=== PATIENT | male | born 1940 | race Caucasian/White ===

== ENCOUNTER 2016-06-29 13:46 | Emergency (ER) | payer BC ==
[~2016-06-29] VITALS: Ht 185.4 cm; Wt 90.0 kg
[~2016-06-29 13:46] MED LIST: ASPI325T45 PO; ATOR-26 PO; BNC40 PO; CLOP1TAB54 PO; DOXA1TAB86 PO; FINA5TAB PO; METO1TAB71 PO; NTRGSL/4 UT
[2016-06-29 13:50] VITALS: Ht 185.4 cm; Wt 90.0 kg
[2016-06-29 13:53] VITALS: O2SAT 95
[2016-06-29] MEDS ORDERED: ACETAMINOPHEN 500 MG TAB PO STA (14:02)
[2016-06-29] MEDS ORDERED: SODIUM CHLORIDE 0.9% 1000ML 1,000 ML IV STA (14:02)
--- NOTE | 2016-06-29 14:05 | EMERGENCY ROOM VISIT NOTE ---
History Report prepared by Andrea: Any Kang Under the Supervision of: Dr. Ponce Peterson M.D. First contact with patient: 13:54 Chief Complaint: ILLNESS History of Present Illness The patient is a 75 year old male who presents to the Emergency Room via ambulance with complaints of resolved chills that began at 10:30 this morning, about 3.5 hours [employer]. The patient notes that he was experiencing shaking due to feeling cold, especially his chest and stomach. The patient tried to warm up by the fire and ate some hot soup without any relief. Currently, he is not shivering anymore. He is unsure if he had a fever. He has not had any sick contacts. He had a normal bowel movement this morning. Denies LOC, runny nose, vomiting, diarrhea, or other complaints. He has a history of cholecystectomy and hernia repair. 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 He has a history of heart disease including a heart attack. Source of History: patient Onset: 10:30AM, 3.5 hours [employer] Position: other (global) Quality: other (shivers/shaking) Timing: resolved Associated Symptoms: No LOC, No diarrhea, No vomiting Review of Systems See HPI for pertinent positives & negatives. A total of 10 systems reviewed and were otherwise negative. Past Medical & Surgical Medical Problems: (1) Angina at rest (2) CAD (coronary artery disease) Family History FHx: heart disease Social History Smoking Status: Former Smoker Marital Status: Occupation Status: retired Current/Historical Medications Scheduled Aspirin (Aspirin), 325 MG PO QAM Atorvastatin (Lipitor), 80 MG PO HS Clopidogrel Bisulfate (Plavix), 75 MG PO QAM Doxazosin Mesylate (Doxazosin Mesylate), 4 MG PO HS Finasteride (Proscar), 5 MG PO QAM Metoprolol Succinate (Toprolxl (Toprol-Xl), 200 MG PO QAM Olmesartan Medoxomil (Benicar), 40 MG PO QAM Scheduled PRN Nitroglycerin (Nitrostat), 0.4 MG UT UD PRN for Chest Pain Allergies Coded Allergies: Lisinopril (Verified Allergy, Unknown, COUGH, 06/29/16) Physical Exam Vital Signs Date Time Temp Pulse Resp B/P Pulse Ox O2 Delivery O2 Flow Rate FiO2 06/29/16 17:19 37.2 69 18 108/64 95 06/29/16 15:47 38.2 72 18 120/79 95 Room Air 06/29/16 13:53 95 Room Air 06/29/16 13:53 86 06/29/16 13:50 37.8 86 18 140/76 95 Room Air Physical Exam GENERAL: Patient is mildly appearing and in no acute distress. HEENT: No acute trauma, normocephalic atraumatic, mucous membranes moist, no nasal congestion, no scleral icterus. NECK: No stridor, no adenopathy, no meningismus, trachea is midline. LUNGS: No dyspnea. Clear to auscultation and equal bilaterally. No wheeze, no rhonchi. HEART: Regular rate and rhythm. No murmurs, rubs, gallops appreciated. ABDOMEN: Soft, nontender, bowel sounds positive, no masses appreciated, no peritonitis. BACK: No midline tenderness, no CVA tenderness EXTREMITIES: Normal motion all extremities, no cyanosis, no edema. NEUROLOGIC: Alert and oriented, no acute motor or sensory deficits, no focal weakness, cranial nerves grossly intact. SKIN: No rash, no jaundice, no diaphoresis. Medical Decision & Procedures ER Provider Diagnostic Interpretation: X ray results are stated below per my interpretation and the radiologist's interpretation. CHEST ONE VIEW PORTABLE CLINICAL HISTORY: Fever COMPARISON STUDY: 04/29/2015 FINDINGS: The cardiac and mediastinal contours remain stable. There is no failure. There is no focal pulmonary consolidation. There are no pleural effusions. IMPRESSION: No active disease in the chest. Electronically signed by: Dominic Francis M.D. 06/29/2016 3:15 PM Dictated Date/Time: 06/29/2016 3:15 PM Laboratory Results 06/29/16 14:25 Red Blood Count 4.71, Mean Corpuscular Volume 93.6, Mean Corpuscular Hemoglobin 33.1, Mean Corpuscular Hemoglobin Concent 35.4, Mean Platelet Volume 10.4, Neutrophils (%) (Auto) 90.2, Lymphocytes (%) (Auto) 6.0, Monocytes (%) (Auto) 2.2, Eosinophils (%) (Auto) 1.2, Basophils (%) (Auto) 0.2, Neutrophils # (Auto) 5.46, Lymphocytes # (Auto) 0.36, Monocytes # (Auto) 0.13, Eosinophils # (Auto) 0.07, Basophils # (Auto) 0.01 06/29/16 14:25 Test 06/29/16 13:00 06/29/16 14:22 06/29/16 14:25 Influenza Type A (RT-PCR) Neg for Influ A (NEG) Influenza Type B (RT-PCR) Neg for Influ B (NEG) Urine Color YELLOW Urine Appearance CLEAR (CLEAR) Urine pH 5.0 (4.5-7.5) Urine Specific [place] 1.019 (1.000-1.030) Urine Protein NEG (NEG) Urine Glucose (UA) NEG (NEG) Urine Ketones NEG (NEG) Urine Occult Blood NEG (NEG) Urine Nitrite NEG (NEG) Urine Bilirubin NEG (NEG) Urine Urobilinogen NEG (NEG) Urine Leukocyte Esterase NEG (NEG) Urine WBC (Auto) 1-5 /hpf (0-5) Urine RBC (Auto) 0-4 /hpf (0-4) Urine Hyaline Casts (Auto) 1-5 /lpf (0-5) Urine Epithelial Cells (Auto) 0-5 /lpf (0-5) Urine Bacteria (Auto) NEG (NEG) White Blood Count 6.04 K/uL (4.8-10.8) Red Blood Count 4.71 M/uL (4.7-6.1) Hemoglobin 15.6 g/dL (14.0-18.0) Hematocrit 44.1 % (42-52) Mean Corpuscular Volume 93.6 fL (80-100) Mean Corpuscular Hemoglobin 33.1 pg (25-34) Mean Corpuscular Hemoglobin Concent 35.4 g/dl (32-36) Platelet Count 121 K/uL (130-400) Mean Platelet Volume 10.4 fL (7.4-10.4) Neutrophils (%) (Auto) 90.2 % Lymphocytes (%) (Auto) 6.0 % Monocytes (%) (Auto) 2.2 % Eosinophils (%) (Auto) 1.2 % Basophils (%) (Auto) 0.2 % Neutrophils # (Auto) 5.46 K/uL (1.4-6.5) Lymphocytes # (Auto) 0.36 K/uL (1.2-3.4) Monocytes # (Auto) 0.13 K/uL (0.11-0.59) Eosinophils # (Auto) 0.07 K/uL (0-0.5) Basophils # (Auto) 0.01 K/uL (0-0.2) RDW Standard Deviation 44.9 fL (36.4-46.3) RDW Coefficient of Variation 13.0 % (11.5-14.5) Immature Granulocyte % (Auto) 0.2 % Immature Granulocyte # (Auto) 0.01 K/uL (0.00-0.02) Anion Gap 9.0 mmol/L (3-11) Est Creatinine Clear Calc Drug Dose 66.6 ml/min Estimated GFR () 76.2 Estimated GFR (Non- 65.8 BUN/Creatinine Ratio 15.4 (10-20) Calcium Level 8.3 mg/dl (8.5-10.1) Total Creatine Kinase 117 U/L (39-308) Creatine Kinase MB 1.8 ng/ml (0.5-3.6) Creatine Kinase MB Ratio 1.5 (0-3.0) Troponin I < 0.015 ng/ml (0-0.045) Laboratory results as reviewed by me. Medications Administered Medications (Trade) Dose Ordered Sig/Mata Route Start Time Stop Time Status Last Admin Dose Admin Sodium Chloride (Nss 1000ml) 1,000 ml @ 999 mls/hr Q1H1M STAT IV 06/29/16 14:02 06/29/16 15:02 DC 06/29/16 14:26 999 MLS/HR Acetaminophen (Tylenol Tab) 1,000 mg NOW STAT PO 06/29/16 14:02 06/29/16 14:04 DC 06/29/16 14:46 1,000 MG ECG Indication: other (low-grade fever) Rate (beats per minute): 83 Rhythm: normal sinus Findings: no acute ischemic change, no ectopy ED Course 1356: The patient was evaluated in room C6. A complete history and physical exam was performed. 1402: Ordered Tylenol Tab 1000 mg PO, NSS 1000 ml @ 999 mls/hr IV. 1521: I reassessed the patient. He was having no further symptoms. 1708: Reevaluated the patient. He was feeling well and had no further symptoms. Discussed results and discharge instructions: He verbalized understanding and agreement. The patient is ready for discharge. Medical Decision Differential: Viral, Pharyngitis, Cellulitis, Pneumonia, Influenza, Meningitis, Sepsis, Bacteremia, UTI/Pyelonephritis, Endocrine, Toxicologic, amongst other pathologies entertained. 75 yr old male arrives with complaint of what sounds like chills/rigors [employer]ERSON. Labs unremarkable with normal lactic acid. Does have mild fever and I suspect he was developing fever leading to symptoms. Cardiac enzymes x 2 negative with normal EKG thus I feel this is unlikely ACS and does not meet criteria for admission. No neuro deficits. No current runny nose/sore throat. Flu negative. No rashes nor obvious source of infection as ua/cxr OK. Given fluids and tylenol and feeling well throughout ED stay. With everything normal I suspect this is viral infection. He has no immunocompromise risk factors. Will discharge to home with and they are aware of symptoms to monitor for at home that would require RTED. Currently he is not septic, has benign abdomen , and is in no distress. Impression Primary Impression: Febrile illness, acute Scribe Attestation The scribe's documentation has been prepared under my direction and personally reviewed by me in its entirety. I confirm that the note above accurately reflects all work, treatment, procedures, and medical decision making performed by me. Departure Information Dispostion Home / Self-Care Referrals Pro,David Sol M.D. (PCP) Patient Instructions ED Fever Unconf Cause, [facility]
[2016-06-29 14:36] LABS: BASO % 0.2 %; BASO ABS # 0.01 K/uL (0-0.2); COMPLETE YES; EOS % 1.2 %; HEMATOCRIT 44.1 % (42-52); IG% 0.2 %; LYMPH ABS # 0.36 K/uL (1.2-3.4); MEAN CELL VOLUME 93.6 fL (80-100); MEAN CORPUSCULAR HEMOGLOBIN 33.1 pg (25-34); MEAN CORPUSCULAR HGB CONC 35.4 g/dl (32-36); MEAN PLATELET VOLUME 10.4 fL (7.4-10.4); MONO % 2.2 %; NEUT % 90.2 %; PLATELET COUNT 121 K/uL (130-400); RED BLOOD COUNT 4.71 M/uL (4.7-6.1); WHITE BLOOD COUNT 6.04 K/uL (4.8-10.8)
[2016-06-29 14:55] LABS: BLOOD UREA NITROGEN 17 mg/dl (7-18); BUN/CREATININE RATIO 15.4 (10-20); CALCIUM 8.3 mg/dl (8.5-10.1); CARBON DIOXIDE 26 mmol/L (21-32); CHLORIDE 107 mmol/L (98-107); GLUCOSE 114 mg/dl (70-99); POTASSIUM 4.2 mmol/L (3.5-5.1); SODIUM 142 mmol/L (136-145)
[2016-06-29 14:58] LABS: URINE APPEARANCE CLEAR (CLEAR); URINE BILIRUBIN NEG (NEG); URINE COLOR YELLOW; URINE EPITHELIAL CELL AUTO 0-5 /lpf (0-5); URINE NITRITE NEG (NEG); URINE SPECIFIC GRAVITY 1.019 (1.000-1.030); UROBILINOGEN NEG (NEG); ZZUR CULT IF INDIC CLEAN CATCH NO
[2016-06-29 15:00] LABS: CKMB/CK RATIO 1.5 (0-3.0)
[2016-06-29 15:13] LABS: MANUAL MICROSCOPIC REQUIRED? NO; REVIEW REQ? NO
--- NOTE | 2016-06-29 15:18 | DIAGNOSTIC IMAGING REPORT ---
CHEST ONE VIEW PORTABLE CLINICAL HISTORY: Fever COMPARISON STUDY: 04/29/2015 FINDINGS: The cardiac and mediastinal contours remain stable. There is no failure. There is no focal pulmonary consolidation. There are no pleural effusions.[ IMPRESSION: No active disease in the chest. Electronically signed by: Dominic Francis M.D. 06/29/2016 3:15 PM Dictated Date/Time: 06/29/2016 3:15 PM
[2016-06-29 15:49] LABS: INFLUENZA A PCR Neg for Influ A (NEG); INFLUENZA B PCR Neg for Influ B (NEG)
[2016-06-29 17:19] VITALS: BP 108/64; PULSE 69; TEMP 37.2; O2SAT 95
== END 2016-06-29 17:16 | disposition home or self-care (01) ==
LOC: EDBD 13:46 → C.EDC 13:48
DX: R50.9 Fever, unspecified (principal); I25.10 Atherosclerotic heart disease of native coronary artery without angina pectoris; I25.2 Old myocardial infarction; Z82.49 Family history of ischemic heart disease and other diseases of the circulatory system; Z79.82 Long term (current) use of aspirin; Z87.891 Personal history of nicotine dependence

== ENCOUNTER → 2016-11-25 | Outpatient (CLI) | payer BC ==
[~2016-11-25] MED LIST changes: +METO-649 PO; -METO1TAB71 PO
[2016-11-25 09:36] LABS: BASO % 0.4 %; BASO ABS # 0.02 K/uL (0-0.2); COMPLETE YES; HEMATOCRIT 47.5 % (42-52); IG% 0.2 %; LYMPH % 22.8 %; LYMPH ABS # 1.12 K/uL (1.2-3.4); MEAN CELL VOLUME 94.1 fL (80-100); MEAN CORPUSCULAR HEMOGLOBIN 31.3 pg (25-34); MEAN CORPUSCULAR HGB CONC 33.3 g/dl (32-36); MEAN PLATELET VOLUME 10.7 fL (7.4-10.4); MONO % 8.4 %; NEUT % 59.2 %; PLATELET COUNT 157 K/uL (130-400); RED BLOOD COUNT 5.05 M/uL (4.7-6.1); WHITE BLOOD COUNT 4.91 K/uL (4.8-10.8)
[2016-11-25 09:49] LABS: ALT/SGPT 26 U/L (12-78); AST/SGOT 19 U/L (15-37); BLOOD UREA NITROGEN 18 mg/dl (7-18); BUN/CREATININE RATIO 17.5 (10-20); CARBON DIOXIDE 26 mmol/L (21-32); CHLORIDE 109 mmol/L (98-107); CHOLESTEROL 120 mg/dl (0-200); GLUCOSE 98 mg/dl (70-99); POTASSIUM 4.1 mmol/L (3.5-5.1); SODIUM 144 mmol/L (136-145); TRIGLYCERIDES 107 mg/dl (0-150); VERY LOW DENSITY LIPOPROT CALC 21 mg/dl
[2016-11-25 09:53] LABS: CHOLESTEROL/HDL RATIO 3.2; HDL CHOLESTEROL 37 mg/dl; LDL CHOLESTEROL CALCULATED 62 mg/dl
[2016-11-25 09:54] LABS: CALCIUM 8.4 mg/dl (8.5-10.1)
== END | disposition home or self-care (01) ==
LOC: C.LAB1850 07:13
PROVIDERS: ATTEND Internal Medicine
DX: I25.10 Atherosclerotic heart disease of native coronary artery without angina pectoris (principal); R73.9 Hyperglycemia, unspecified; E78.5 Hyperlipidemia, unspecified; N40.0 Benign prostatic hyperplasia without lower urinary tract symptoms; D64.9 Anemia, unspecified

== ENCOUNTER → 2017-06-01 | Outpatient (CLI) | payer BC ==
--- NOTE | 2017-06-01 14:42 | DIAGNOSTIC IMAGING REPORT ---
CAROTID DOPPLER NECK ART CLINICAL HISTORY: 76 years-old Male presenting with TRANSIENT VISUAL LOSS. TECHNIQUE: Real-time grayscale and color and spectral Doppler ultrasound imaging of the bilateral carotid arteries was performed. NASCET criteria was used in evaluating this study. COMPARISON: None. FINDINGS: Right: Common carotid: Atherosclerosis at the carotid bulb. Peak systolic velocity 71 cm/s. Internal carotid artery: Patent. Peak systolic velocity 78 cm/s. Systolic ratio: 1.1. External carotid artery: Patent. Peak systolic velocity 101 cm/s. Left: Common carotid: Atherosclerosis at the carotid bulb. Peak systolic velocity 85 cm/s. Internal carotid artery: Patent. Peak systolic velocity 80 cm/s. Systolic ratio: 0.9. External carotid artery: Patent. Peak systolic velocity 15 cm/s. Bilateral antegrade flow within the vertebral arteries. Reference ranges: Stenosis measurements are compared to reference velocity parameters. ICA peak systolic velocity (PSV) < 125 cm/s normal or indicating < 50% stenosis; ICA PSV 125-230 cm/s equivalent to 50-69% stenosis; ICA PSV > 230 cm/s equivalent to greater than or equal to 70% stenosis. ICA PSV to common carotid artery PSV ratio < 2 normal or < 50% stenosis; 2-4 equates to 50-69% stenosis, > 4 equates to greater than or equal to 70% stenosis. Normal ICA end-diastolic velocity less than 40. Blood pressure Brachial: Right: 156/80 mmHg, Left: 144/84 mmHg. IMPRESSION: Atherosclerosis without hemodynamically significant stenosis seen within the carotid arteries. Electronically signed by: Asa Ordaz M.D. 06/01/2017 2:40 PM Dictated Date/Time: 06/01/2017 2:40 PM
[2017-06-01 16:52] LABS: BASO % 0.6 %; BASO ABS # 0.03 K/uL (0-0.2); COMPLETE YES; EOS % 3.3 %; HEMATOCRIT 45.4 % (42-52); IG% 0.2 %; LYMPH % 21.6 %; MEAN CELL VOLUME 95.4 fL (80-100); MEAN CORPUSCULAR HEMOGLOBIN 33.2 pg (25-34); MEAN CORPUSCULAR HGB CONC 34.8 g/dl (32-36); MEAN PLATELET VOLUME 10.9 fL (7.4-10.4); MONO % 5.5 %; NEUT % 68.8 %; PLATELET COUNT 147 K/uL (130-400); RED BLOOD COUNT 4.76 M/uL (4.7-6.1)
[2017-06-01 17:03] LABS: BLOOD UREA NITROGEN 17 mg/dl (7-18); BUN/CREATININE RATIO 13.9 (10-20); C-REACTIVE PROTEIN < 0.29 mg/dl (0-0.29); CALCIUM 8.6 mg/dl (8.5-10.1); CARBON DIOXIDE 31 mmol/L (21-32); CHLORIDE 104 mmol/L (98-107); GLUCOSE 129 mg/dl (70-99); POTASSIUM 3.8 mmol/L (3.5-5.1); SODIUM 137 mmol/L (136-145)
== END | disposition home or self-care (01) ==
LOC: C.ULTRBC 13:12
PROVIDERS: ATTEND Physician Assistant
DX: H53.129 Transient visual loss, unspecified eye (principal); I65.23 Occlusion and stenosis of bilateral carotid arteries

== ENCOUNTER → 2017-06-06 | Outpatient (CLI) | payer BC ==
[~2017-06-06] MED LIST changes: +ASPECOTC PO; -ASPI325T45 PO; -METO-649 PO; +METO200T32 PO
--- NOTE | 2017-06-06 13:57 | DIAGNOSTIC IMAGING REPORT ---
MRI OF THE BRAIN WITHOUT IV CONTRAST CLINICAL HISTORY: Blurry vision with exertion. COMPARISON STUDY: MRI of the brain dated 07/22/11. TECHNIQUE: MRI of the brain was performed utilizing various T1 and T2-weighted sequences in the axial, sagittal, and coronal planes. IV contrast was not administered for this examination. FINDINGS: Brain parenchyma: There are age-related involutional changes noting mild patchy subcortical and periventricular microangiopathic disease. There is no hemorrhage or mass effect. There is no restricted diffusion to suggest acute ischemia. Puckett-white matter differentiation is preserved. No extra-axial fluid collection is seen. The cerebellar tonsils are normal in configuration. Ventricles, sulci, and cisterns: Prominent secondary to involutional change. Pituitary and sella: Unremarkable. Intracranial vasculature: Normal flow voids are maintained at the skull base. Orbits: The bony orbits are grossly intact. Orbital contents are normal in appearance. Sinuses and mastoids: There is near complete opacification of the left frontal sinus. Mucosal thickening is also seen within the ethmoid sinuses and the right maxillary sinus. The mastoid air cells are clear. Calvarium: Unremarkable. Cervical cord: Partially visualized cervical spinal cord is normal in morphology and signal intensity. IMPRESSION: No acute intracranial abnormality. Electronically signed by: Yair Lewis M.D. 06/06/2017 1:56 PM Dictated Date/Time: 06/06/2017 1:52 PM
== END | disposition home or self-care (01) ==
LOC: C.MRI 12:57
PROVIDERS: ATTEND Physician Assistant
DX: H53.129 Transient visual loss, unspecified eye (principal)

== ENCOUNTER → 2017-06-22 | Outpatient (CLI) | payer BC ==
[~2017-06-22] MED LIST changes: -ASPECOTC PO; +ASPI325T45 PO
[2017-06-22 11:13] LABS: HEMATOCRIT 47.9 % (42-52); HEMOGLOBIN 16.4 g/dL (14.0-18.0); MEAN CELL VOLUME 95.6 fL (80-100); MEAN CORPUSCULAR HEMOGLOBIN 32.7 pg (25-34); MEAN CORPUSCULAR HGB CONC 34.2 g/dl (32-36); MEAN PLATELET VOLUME 11.1 fL (7.4-10.4); PLATELET COUNT 160 K/uL (130-400); RED CELL DISTRIBUTION WIDTH CV 12.8 % (11.5-14.5); RED CELL DISTRIBUTION WIDTH SD 44.6 fL (36.4-46.3); WHITE BLOOD COUNT 4.93 K/uL (4.8-10.8)
[2017-06-22 11:32] LABS: ALT/SGPT 24 U/L (12-78); AST/SGOT 16 U/L (15-37); BLOOD UREA NITROGEN 17 mg/dl (7-18); CALCIUM 8.7 mg/dl (8.5-10.1); CARBON DIOXIDE 32 mmol/L (21-32); CREATININE 1.06 mg/dl (0.60-1.40); GLUCOSE 98 mg/dl (70-99); POTASSIUM 4.1 mmol/L (3.5-5.1); SODIUM 142 mmol/L (136-145)
[2017-06-22 11:33] LABS: HEMOGLOBIN A1C 5.5 % (4.5-5.6)
[2017-06-22 11:34] LABS: CHOLESTEROL 95 mg/dl (0-200); LDL CHOLESTEROL CALCULATED 42 mg/dl
== END | disposition home or self-care (01) ==
LOC: C.LABBC 08:19
PROVIDERS: ATTEND Internal Medicine
DX: E78.5 Hyperlipidemia, unspecified (principal); R73.9 Hyperglycemia, unspecified

== ENCOUNTER → 2017-07-18 | Outpatient (CLI) | payer BC ==
--- NOTE | 2017-07-18 10:51 | DIAGNOSTIC IMAGING REPORT ---
Study: Fusion CT sinuses. HISTORY:. Abnormal MRI. COMPARISON: MRI brain 06/06/2017 FINDINGS: Complete soft tissue opacification left lateral frontal sinus. Right lateral frontal sinus is clear with the central aspect of the frontal sinus showing only minimal mucosal thickening.. There is mild mucosal thickening of the ethmoid sinuses. There is a trace amount of mucosal thickening of the maxillary sinuses bilaterally. Sphenoid sinuses clear. There is no bony destructive process. Soft tissue occlusion of the right estimated units. There is soft tissue narrowing on the left. The orbital margins are intact. There is no evidence for an expansile lesion. Mild hypertrophic change of the nasal turbinates. Prior partial resection of the left middle nasal turbinate. Possible left antral window IMPRESSION: 1. Opacification left frontal sinus with moderate mucosal thickening of the ethmoid and to a lesser extent maxillary sinuses bilaterally. 2. Soft tissue occlusion right ostiomeatal unit. 3. Probable partial resection left middle nasal turbinate with placement of a patent left antral window. Mild soft tissue narrowing of the left window. 4. No evidence for a bony destructive or expansile process. Electronically signed by: Curry Ambriz M.D. 07/18/2017 10:50 AM Dictated Date/Time: 07/18/2017 10:31 AM
== END | disposition home or self-care (01) ==
LOC: C.CTS 10:05
DX: J34.9 Unspecified disorder of nose and nasal sinuses (principal)